=== PATIENT | female | born 1945 | race Caucasian/White ===

== ENCOUNTER → 2016-05-20 | Outpatient (CLI) | payer OTHER, MEDICARE | LOC: FIMAGING 08:38 | DX: Z12.31 Encounter for screening mammogram for malignant neoplasm of breast (principal) | CPT/HCPCS: G0202 ==

== ENCOUNTER → 2016-06-08 | Outpatient (CLI) | payer OTHER, MEDICARE | LOC: BHFA 12:45 | PROVIDERS: ATTEND Internal Medicine Cardiovascular Disease | DX: I35.1 Nonrheumatic aortic (valve) insufficiency (principal) ==

== ENCOUNTER → 2016-09-02 | Outpatient (CLI) | payer OTHER, MEDICARE | LOC: BMCIMAGING 08:50 | PROVIDERS: ATTEND Podiatrist Foot & Ankle Surgery | DX: M79.674 Pain in right toe(s) (principal) ==

== ENCOUNTER → 2016-10-08 | Outpatient (CLI) | payer OTHER, MEDICARE | LOC: FIMAGING 10:23 | PROVIDERS: ATTEND Internal Medicine Endocrinology, Diabetes & Metabolism | DX: Z13.820 Encounter for screening for osteoporosis (principal); M85.80 Other specified disorders of bone density and structure, unspecified site; R29.890 Loss of height; Z82.62 Family history of osteoporosis ==

== ENCOUNTER 2016-11-06 10:43 | Emergency (ER) | payer OTHER, MEDICARE ==
[2016-11-06 10:50] VITALS: RESP 14; TEMP 97.9
--- NOTE | 2016-11-06 11:27 | CPEKG ---
Heart Rate: 65 RR Interval: 923 P-R Interval: 172 QRSD Interval: 70 QT Interval: 400 QTC Interval: 416 P [place]: 27 QRS [place]: 1 T Wave [place]: 31 EKG Severity - BORDERLINE ECG - EKG Impression: SINUS RHYTHM EKG Impression: LOW VOLTAGE THROUGHOUT EKG Impression: BORDERLINE R WAVE PROGRESSION, ANTERIOR LEADS Electronically Signed By: Elli Rose 06-Nov-2016 16:20:51
--- NOTE | 2016-11-06 12:08 | EDPHY ---
HPI/HX/ROS/PE/MDM Narrative: CHIEF COMPLAINT: Off balance, Dizzy HISTORY OF PRESENT ILLNESS: The patient is a 71-year-old female presenting with an off balance sensation. The patient woke up two mornings ago and felt dizzy and off balance. This resolved after some time. Yesterday she went up to 9200 feet in elevation and began to feel off balance again. This morning she woke up and her symptoms returned and were worse than the previous two days. Patient was unable to ambulate due to unsteadiness. She had associated nausea with emesis and diaphoresis. The patient has experienced vertigo in the past and a few years ago had "a runaway crystal in my ear." She was evaluated for this but does not recall the treatment plan. She denies recent sickness. No fever, chills , chest pain, shortness of breath, palpitations, diarrhea, urinary complaints, headache. Denies weakness, numbness, falling to one side or another, headache, neck pain, vision complaints or head trauma. No hx of stoke. REVIEW OF SYSTEMS: Aside from elements discussed in the HPI, a comprehensive 10-point review of systems was reviewed and is negative. PAST MEDICAL HISTORY: Hypothyroid, Spinal fusion, Valve issues- [place] [facility] patient. SOCIAL HISTORY: Single. Lives in [place] alone. VITAL SIGNS: Reviewed by me GENERAL: Well-developed, well-nourished, resting comfortably in no respiratory distress. HEENT: Atraumatic. Eyes: No icterus, no injection. No nystagmus. EOMI. PERRL. TMs clear bilaterally. Mouth: moist mucous membranes. No erythema or lesions. Neck: supple with no adenopathy. No bruit. LUNGS: Clear to auscultation bilaterally, no wheezes, rhonchi or rales. CARDIAC: Regular rate and rhythm, diastolic murmur. ABDOMEN: Soft, nontender, nondistended, bowel sounds normal. BACK: No CVA tenderness. EXTREMITIES: No trauma. No edema. Range of motion is normal throughout. NEURO: Alert and oriented, CN 2-12 intact, motor 5/5, sensation intact to light touch. Finger to nose and heal to merino normal. SKIN: Warm and dry, no rash. PSYCHIATRIC: Normal mentation, no agitation. Portions of this note were transcribed by a medical manager. I personally performed a history, physical exam, medical decision making, and confirmed accuracy of information the transcribed note. ED Course: Patient presents with vertigo symptoms. Quite ill this morning with diaphoresis , vomiting, unable to walk. Currently better, but reports a vague feeling of being unwell. She received Meclizine in the ED. MRI brain ordered. 12-LEAD EKG: Please see the full report in [facility]. My interpretation: borderline r wave progression. sinus, no ischemic changes. Labs unremarkable. MRi negative. Patient is feeling better after Meclizine. I suspect symptoms are likely benign vertigionous symptoms. I will discharge the patient home with Meclizine. MDM: Diff dx for patients symptoms considered including but not limited to vertigo, benign positional vertigo, electrolyte abnormalities, arrhythmias, stroke. - Data Points Imaging Results: MRI Brain: Impression: 1. No acute intracranial findings. 2. Atrophy with white matter change most likely related to chronic microvascular ischemic gliosis. Imaging: Discussed imaging studies w/ call or contact centre team leader Radiologist Laboratory Results: Laboratory Results 11/06/16 11:20 11/06/16 11:20 General Time Seen by Provider: 11/06/16 12:01 Initial Vital Signs: Initial Vital Signs Temperature (C) 36.6 C 11/06/16 10:45 Heart Rate 79 11/06/16 10:45 Respiratory Rate 14 11/06/16 10:45 Blood Pressure 102/86 H 11/06/16 10:45 O2 Sat (%) 98 11/06/16 10:45 O2 Delivery Mode Room Air Allergies/Adverse Reactions: No Known Allergies Allergy (Unverified 03/27/11 13:21) Home Medications: Medication Instructions Recorded CELECOXIB [Celebrex] 200 mg PO DAILY 03/27/11 Gabapentin [Neurontin] 0 mg PO AD 03/27/11 Levothyroxine [Synthroid] 0 mcg PO DAILY 03/27/11 Aspirin 81mg (OTC) 04/09/15 Hydrocodon-Acetaminoph 2.5-325 04/09/15 Methocarbamol 04/09/15 Meclizine HCl [Meclizine HCl 25 mg 25 mg PO BID #10 tab 11/06/16 (RX,OTC)] Departure - Departure Disposition: Home, Routine, Self-Care Clinical Impression: Vertigo Condition: Good Instructions: Vertigo (ED) Additional Instructions: 1. Take Meclizine as prescribed for recurrent nausea or vomiting. 2. You have been referred to an Ear, Nose, and Throat specialist below. Please call to arrange a followup appointment if your symptoms persist. 3. Return to the Emergency Department with chest pain, shortness of breath, severe vomiting, or worsening of your condition. Referrals: Gisselle Pearson MD [Primary Care Provider] - As per Instructions Lynn Moran MD [Medical Doctor] - As per Instructions (ENT Specialist) Prescriptions: Meclizine HCl [Meclizine HCl 25 mg (RX,OTC)] 25 mg PO BID #10 tab Report Scribed for: Elli Rose Report Scribed by: Ciera Royal Date of Report: 11/06/16 Time of Report: 12:08
[2016-11-06 12:57] LABS: % IMMATURE GRANULYOCYTES 0.3 % (0.0-1.1); ABSOLUTE IMMATURE GRANULOCYTES 0.02 10^3/uL (0.00-0.10); ADD DIFF? NO; ADD MORPH? NO; ADD SCAN? NO; ATYPICAL LYMPHOCYTE FLAG 0 (0-99); FRAGMENT RBC FLAG 0 (0-99); HEMOGLOBIN 14.2 g/dL (12.6-16.3); LEFT SHIFT FLG 0 (0-99); LIPEMIA HEMOLYSIS FLAG 80 (0-99); MEAN CELL HEMOGLOBIN 32.1 pg (27.9-34.1); MEAN CELL VOLUME 97.3 fL (81.5-99.8); PLATELET CLUMPS FLAG 10 (0-99); PLATELET COUNT 301 10^3/uL (150-400); RED BLOOD CELL COUNT 4.42 10^6/uL (4.18-5.33); RED CELL DISTRIBUTION WIDTH 12.4 % (11.5-15.2)
[2016-11-06 13:07] LABS: ANION GAP 13 mEq/L (8-16); CALCIUM 9.8 mg/dL (8.5-10.4); CARBON DIOXIDE 23 mEq/l (22-31); CHLORIDE 106 mEq/L (97-110); CREATININE 0.6 mg/dL (0.6-1.0); GLOMERULAR FILTRATION RATE > 60; GLUCOSE 100 mg/dL (70-100); POTASSIUM 4.1 mEq/L (3.5-5.2); SODIUM 142 mEq/L (134-144)
[2016-11-06 13:18] LABS: TROPONIN I < 0.012 ng/mL (0.000-0.034)
[2016-11-06] MEDS ORDERED: MECLIZINE HCL 25 MG TAB PO ONE (14:29)
[2016-11-06 14:44] VITALS: BP 114/72; PULSE 88; O2SAT 92
== END 2016-11-06 14:44 | disposition home or self-care (01) ==
DX: R42 Dizziness and giddiness (principal); Z79.82 Long term (current) use of aspirin

== ENCOUNTER → 2017-04-08 | Outpatient (CLI) | payer OTHER, MEDICARE | LOC: FIMAGING 12:01 | PROVIDERS: ATTEND Physician Assistant | DX: M41.84 Other forms of scoliosis, thoracic region (principal); Z98.1 Arthrodesis status ==

== ENCOUNTER → 2017-04-30 | Outpatient (CLI) | payer OTHER, MEDICARE | LOC: FIMAGING 08:02 | PROVIDERS: ATTEND Physician Assistant | DX: M50.31 Other cervical disc degeneration, high cervical region (principal); M48.02 Spinal stenosis, cervical region; M46.92 Unspecified inflammatory spondylopathy, cervical region; M46.94 Unspecified inflammatory spondylopathy, thoracic region; M48.03 Spinal stenosis, cervicothoracic region ==

== ENCOUNTER → 2017-05-05 | Outpatient (CLI) | payer OTHER, MEDICARE | LOC: BHFA 08:30 | PROVIDERS: ATTEND Internal Medicine Cardiovascular Disease | DX: I35.1 Nonrheumatic aortic (valve) insufficiency (principal) ==

== ENCOUNTER → 2017-05-23 | Outpatient (CLI) | payer OTHER, MEDICARE | LOC: FIMAGING 08:20 | PROVIDERS: ATTEND Family Medicine | DX: Z12.31 Encounter for screening mammogram for malignant neoplasm of breast (principal) ==

== ENCOUNTER → 2017-12-08 | Outpatient (CLI) | payer OTHER, MEDICARE | LOC: FIMAGING 09:22 | PROVIDERS: ATTEND Internal Medicine Endocrinology, Diabetes & Metabolism | DX: Z13.820 Encounter for screening for osteoporosis (principal); M81.0 Age-related osteoporosis without current pathological fracture; Z98.1 Arthrodesis status ==

== ENCOUNTER → 2018-05-18 | Outpatient (CLI) | payer OTHER, MEDICARE | LOC: BHFA 08:30 | PROVIDERS: ATTEND Internal Medicine Interventional Cardiology | DX: I38 Endocarditis, valve unspecified (principal) ==

== ENCOUNTER → 2018-05-29 | Outpatient (CLI) | payer OTHER, MEDICARE | LOC: FIMAGING 09:17 | PROVIDERS: ATTEND Family Medicine | DX: Z12.31 Encounter for screening mammogram for malignant neoplasm of breast (principal); Z80.3 Family history of malignant neoplasm of breast ==